=== PATIENT | female | born 1960 | race Caucasian/White ===

== ENCOUNTER → 2016-09-29 | Outpatient (CLI) | payer OTHER ==
--- NOTE | 2016-09-30 19:06 | RADRPT ---
PROCEDURE: Left knee radiographs. CLINICAL INDICATION: Left knee pain. TECHNIQUE: Four views. Weight bearing. Frontal, lateral, oblique, and patellar view. COMPARISON: No prior studies are available for comparison. FINDINGS: There is no fracture or dislocation. The soft tissues are normal. There are degenerative changes with osteophytes arising from all 3 joint compartment margins. There is lateral patellofemoral joint compartment narrowing and deformity. There is no lytic or blastic lesion. There is no radiopaque foreign body. IMPRESSION: 1. Moderate to severe degenerative changes of the left knee. 2. No acute abnormality. RPTAT: QQ .Vipul Sawyer MD, MD Date Time Electronically viewed and signed by .Vipul Sawyer MD, MD on 09/30/2016 19:05 .R/
== END | disposition home or self-care (01) ==
LOC: HKI 15:30
PROVIDERS: ATTEND Orthopaedic Surgery
DX: M25.562 Pain in left knee (principal)

== ENCOUNTER → 2016-10-25 | Outpatient (CLI) | payer OTHER ==
--- NOTE | 2016-10-25 15:30 | RADRPT ---
PROCEDURE: Limited x-ray of both lower extremities. CLINICAL INDICATION: Bilateral leg pain. TECHNIQUE: Single frontal view of both lower extremities was obtained from the hips to the calves. COMPARISON: None. FINDINGS: There are degenerative changes of both hips and both knees with osteophytes and joint space narrowin g. IMPRESSION: 1. Degenerative changes of both hips and both knees. RPTAT: QQ .Vipul Sawyer MD, MD Date Time Electronically viewed and signed by .Vipul Sawyer MD, on 10/25/2016 15:30 .R/
== END | disposition home or self-care (01) ==
LOC: HKI 10:23
PROVIDERS: ATTEND Orthopaedic Surgery
DX: M25.562 Pain in left knee (principal); M17.12 Unilateral primary osteoarthritis, left knee
CPT/HCPCS: 77073; G0463

== ENCOUNTER 2016-11-02 09:05 | Inpatient (IN) | payer OTHER ==
[2016-10-25 12:36] VITALS: BMI 33.5
[~2016-11-02] VITALS: Ht 172.7 cm; Wt 100.0 kg
[2016-11-02] VITALS (32 sets, daily range): BP systolic 110–140; BP diastolic 59–86; PULSE 64–81; RESP 11–19; Ht 172.7 cm; Wt 100.0 kg
[~2016-11-02 09:05] MED LIST: BUPIVACAINE 0.5% (SDV) 30 ML, EPINEPHrine 0.3 MG, KETOROLAC 30 MG, CLONIDINE 100 MCG, S... IRR SCH; BUPIVACAINE LIPOSOME/PF 266 MG/20 ML VIAL INFIL SCH; CEFAZOLIN 2GM/50 ML (PMX) 50 ML X1 BEFORE INCISION IVPB SCH; CELECOXIB 400 MG PO X1 DOSE PO SCH; EXPAREL NOTE (BUPIVICAINE LIPOSOMAL) XX SCH; LACTATED RINGER'S 1,000 ML IV SCH; ONDANSETRON 4 MG IV X 1 DOSE IV SCH; PREGABALIN 300 MG PO X1 PO SCH; TRANEXAMIC ACID 980 MG in SOD CHLORIDE 0.9% 100 ML IVPB SCH; TRANEXAMIC ACID 980 MG in SOD CHLORIDE 0.9% 90.2 ML IV SCH; oxyCODONE (CR) 10 MG TAB [oxyCONTIN] X1 DOSE PO SCH; traMADOL 50 MG TAB X 1 DOSE PO SCH
[2016-11-02] MEDS ORDERED: OMEP20CA16 PO (12:22)
[2016-11-02] MEDS ORDERED: THYR30TA PO (12:22)
--- NOTE | 2016-11-02 14:54 | HPN ---
Date/Time of Note Date/Time of Note DATE: 11/02/16 TIME: 14:53 Interval H&P Admission Note Pt. seen H&P reviewed: No system changes No changes from H&P on 10/23/16 by LEEUTERIO Monge MD Nov 02, 2016 14:54
[2016-11-02] MEDS ORDERED: PROPOFOL 100 ML ONE (15:33)
[2016-11-02] MEDS ORDERED: LIDOCAINE 2% (SDV) 5 ML INJ ONE (15:33)
[2016-11-02] MEDS ORDERED: BACITRACIN 50000 UNITS INJ ONE (15:34)
[2016-11-02] MEDS ORDERED: MIDAZOLAM 1 MG/ML 2 ML INJ ONE (15:34)
[2016-11-02] MEDS ORDERED: FENTAnyl 50 MCG/ML VIAL ONE (15:34)
[2016-11-02] MEDS ORDERED: POLYMYXIN B 500000 UNIT INJ ONE (15:35)
[2016-11-02] MEDS ORDERED: VANCOMYCIN 1 GM INJ ONE ×2 (15:35→16:37)
[2016-11-02] MEDS ORDERED: CEFAZOLIN 1 GM INJ ONE (15:53)
[2016-11-02] MEDS ORDERED: DEXAMETHASONE 4 MG/ML 1 ML INJ ONE (16:25)
[2016-11-02] MEDS ORDERED: METOCLOPRAMIDE 10 MG INJ ONE (16:25)
[2016-11-02] MEDS ORDERED: FAMOTIDINE 20 MG INJ ONE (16:25)
[2016-11-02] MEDS ORDERED: ONDANSETRON 4 MG INJ ONE (16:25)
[2016-11-02] MEDS ORDERED: EPHEDrine SULFATE 50 MG/5 ML SYG ONE (16:30)
[2016-11-02] MEDS ORDERED: DIPHENHYDRAMINE 50 MG INJ IV PRN (17:30)
[2016-11-02] MEDS ORDERED: PROCHLORPERAZINE 10 MG INJ IV PRN (17:30)
[2016-11-02] MEDS ORDERED: ONDANSETRON 4 MG INJ IV PRN ×2 (17:30→18:30)
[2016-11-02] MEDS ORDERED: MEPERIDINE 25 MG INJ IV PRN (17:30)
[2016-11-02] MEDS ORDERED: FENTAnyl 50 MCG/ML VIAL IV PRN (17:30)
[2016-11-02] MEDS ORDERED: HYDROmorphONE (0.2 MG/ML) 10ML SYG IV PRN (17:30)
--- NOTE | 2016-11-02 18:22 | OPR ---
Date/Time of Note Date/Time of Note DATE: 11/02/16 TIME: 18:17 Operative Report Procedure Description DATE: 11/02/2016 PREOPERATIVE DIAGNOSIS: Left knee osteoarthritis POSTOPERATIVE DIAGNOSIS: Left knee osteoarthritis OPERATION PERFORMED: Left total knee arthroplasty. SURGEON: Eleuterio Connolly MD PRACTICE MANAGER: Marlo Garcia PA-C COMPONENTS USED: DePuy Attune 5 narrow femoral component, 5 tibial baseplate, 6 mm polyethylene insert, 38 patella button ANESTHESIA: Spinal plus general endotracheal intubation, plus femoral nerve catheter. ANESTHESIOLOGIST: Cara Henao M.D. TOURNIQUET TIME: 66 minutes. ESTIMATED BLOOD LOSS: 50 cc INTRAVENOUS FLUIDS: 2,300 cc crystalloid SPECIMENS: Bone and soft tissue. DRAINS: Hemovac x1. COMPLICATIONS: None. DISPOSITION: The patient tolerated the procedure well and was taken to the recovery room in stable condition. INDICATIONS: The patient is a 55-year-old woman who has had progressively worsening pain in her left knee with radiographic evidence of severe osteoarthritis. She has tried a multitude of nonsurgical means of treatment to address her pain including activity modifications, pain medications, intra- articular injections, and ambulatory assist devices. Despite these measures she has had worsening pain and I feel she will benefit from a total knee arthroplasty. The risks, benefits, and alternatives of the procedure were explained in detail to the patient. I explained the risks of the surgery to include but not be limited to, bleeding and possible need for blood transfusion; infection; pain; stiffness; neurovascular injury with possible numbness, weakness, and/or paralysis anywhere from the knee down to the toes; fracture; instability; dislocation; wear and/or loosening of the prosthesis and possible need for future revision; blood clots; pulmonary embolism; and anesthetic complications such as heart attack, stroke, GI bleed, pneumonia, and/or . Ample time was allowed for the patient to ask questions, all of which were addressed and answered. The patient understood the risks involved and wished to proceed. Informed consent was signed prior to the procedure. PROCEDURE: The patient's left knee was initialed with a marking pen in the preoperative area to identify the correct operative site. The patient was brought to the operating room and transferred [facility] to the operating table where a spinal anesthetic was administered. The patient was then anesthetized and intubated. A Calvo catheter was placed. A timeout was performed to confirm that the left leg was the correct operative site. The patient was given 2 g of Ancef within one hour prior to the procedure. A tourniquet was placed on the operative proximal thigh. The operative knee and lower extremity were prepped and draped in the usual sterile fashion. The operative lower extremity was elevated and exsanguinated with an Esmarch tourniquet. The proximal thigh tourniquet was inflated to 300 mmHg. The knee was flexed. A midline incision was made and carried down through the subcutaneous tissue and fat with sharp dissection. Limited medial and lateral flaps were raised. A median parapatellar approach was performed. Synovial fluid was normal in color and consistency. The patella was everted and the knee flexed. There were severe tricompartmental osteoarthritic changes noted. A medial release was performed at the joint line to the midcoronal plane. The ACL and PCL and remnants of the menisci were excised. The stepped drill was used to open up the femoral canal which was irrigated and sucked dry. The intramedullary guide sayra was passed up the femur, and the distal cutting block was pinned into place for a 5 degree valgus cut, taking 10 mm of bone off distally. The oscillating saw was used to make the cut. The tibia was subluxed anteriorly. The tibial cutoff jig was placed over the center of the talus distally and over the junction of the medial and middle third of the tibial tubercle proximally. The guide was pinned into place and the oscillating saw was used to make the cut. The tibia was sized. The extension gap was checked and accommodated a 6 mm spacer block with the knee in full extension. There was no varus or valgus instability. At this point, the femur was sized with the posterior referencing guide. Two holes were drilled in 3 degrees of external rotation. The two holes were in line with the transepicondylar axis, perpendicular to Attala's line, and in line with the tibial cutoff jig brought up with the knee flexed 90 degrees and tensed with 2 lamina spreaders, suggesting the femoral rotation was correct. The four-in-one cutting block was pinned into place. The anterior and posterior cuts and chamfer cuts were made with the oscillating saw. The flexion gap was checked and accommodated the 6 mm spacer block at 90 degrees. There was no varus or valgus instability, suggesting the flexion and extension gaps were now equal. The central box was cut out on the femur. The tibia was drilled and punched in proper rotation. Trial components were placed into position with a trial insert. The patella was cut down to 15 mm and sized. Three holes were drilled and the trial button placed in position. With all the trials now in place, the knee was taken through range of motion and came to full extension as evidenced by the fact that with the foot on my abdomen and axial loading, there was no tendency for the knee to flex. The knee was able to be flexed to 125 degrees with good patellar tracking with no lateral tilt or subluxation. At this point, I was satisfied with the overall range of motion, stability, and patellar tracking. The trials were removed. The real components were opened. Two bags of cement were mixed, one with and one without premixed antibiotic. The knee was irrigated with antibiotic saline and sucked dry. Once the cement was in a doughy stage, the real components were cemented into place. The knee was held in full extension, and the patellar component was held with a patellar clamp. All excess cement was removed with curettes. As the cement was hardening, the synovial/capsular layer was infiltrated with a mixture of 150 mg of 0.5% Bupivacaine, 8 mg of Duramorph, 300 mcg of epinephrine, 30 mg of Toradol, 100 mcg of clonidine, 750 mg of cefuroxime and 86 mL of normal saline, followed by an injection of 266 mg of liposomal Bupivacaine. A Hemovac drain was placed in the deep portion of the wound and brought out the anterolateral thigh. Once the cement was completely hardened, the trial liner was removed, and the real insert was opened. The tourniquet was let down, and there was good hemostasis. The knee was then irrigated with a mixture of betadine/saline and then antibiotic saline with pulsatile lavage. The real insert was impacted into the tibia and reduced onto to the femur. The arthrotomy was closed with a few interrupted #1 Ethibond in a figure-of- eight fashion, and then closed in a watertight fashion with a running #2 Stratafix suture. Knee flexion was checked against gravity and came to 125 degrees. The subcutaneous layer was irrigated and closed with 2-0 Statafix, and then 3-0 Vicryl and then nadeem on the skin. The wound was covered a silver Mepilex dressing. Upon removing the drapes it was noted that she had diffuse skin adhesive abrasions from where the adhesive aspects of the sterile drapes were applied around the proximal thigh. This was covered with Xeroform dressings and then overwrapped with cast padding and a bias dressing. The drain was secured with 3-0 nylon. The sponge and needle counts were correct at the end of the case. The patient was then awakened, extubated, and taken to the recovery room in stable condition. ELEUTERIO CONNOLLY MD Nov 02, 2016 18:22
--- NOTE | 2016-11-02 18:26 | PN ---
Date/Time of Note Date/Time of Note DATE: 11/02/16 TIME: 18:24 Assessment/Plan Lines/Catheters IV Catheter Type (from Nrsg): Saline Lock Assessment/Plan Assessment/Plan Stable in PACU, s/p left TKA -continue Ancef -pain meds as needed -ASA/SCDs -OOB with PT -check AM labs -monitor drain -d/c dupree in AM XR of the left knee is pending at this time Subjective 24 Hr Interval Summary Stable in PACU. Denies pain. Moving all extremities Exam/Review of Systems Vital Signs Vitals Vital Signs Date Time Temp Pulse Resp B/P Pulse Ox O2 Delivery O2 Flow Rate FiO2 11/02/16 12:22 99.2 73 16 115/71 97 Room Air Exam Free Text/Dictation Hemovac: minimal Dressing dry Incision clean, dry, and intact without redness or drainage Thigh soft Developed adhesive abrasion from the drape in circumferential fashion 5/5 Quadriceps, Tibialis Anterior, EHL, Gastroc, Soleus, Peroneals Normal sensation Palpable DT/PT, CR <2 sec No distal edema SOHA HAJI PA-C Nov 02, 2016 18:26
[2016-11-02] MEDS ORDERED: ASPIRIN (EC) 325 MG TAB PO ONE (18:30)
[2016-11-02] MEDS ORDERED: HYDROCODONE/APAP (7.5/325) TAB PO PRN (18:30)
[2016-11-02] MEDS ORDERED: BISACODYL 10 MG SUPP PR PRN (18:30)
[2016-11-02] MEDS ORDERED: HYDROmorphONE 1 MG/ML SYG IV PRN (18:30)
[2016-11-02] MEDS ORDERED: NACL 0.9% 3 ML SYG IV SCH (18:30)
[2016-11-02] MEDS ORDERED: MAGNESIUM HYDROXIDE 30ML CUP PO PRN (18:30)
[2016-11-02] MEDS ORDERED: NA PHOSPHATE/BIPHOS 133 ML ENEMA PR PRN (18:30)
[2016-11-02] MEDS ORDERED: DIPHENHYDRAMINE 25 MG CAP PO PRN (18:30)
[2016-11-02 18:48] LABS: HEMATOCRIT 38.2 % (37.0-47.0); HEMOGLOBIN 12.5 g/dl (12.0-16.0)
[2016-11-02 19:16] LABS: CALCIUM 8.5 mg/dl (8.4-10.2); CREATININE 0.89 mg/dl (0.44-1.00); POTASSIUM 4.3 mmol/L (3.5-5.1)
[2016-11-02] MEDS: CEFAZOLIN 2 GM/50 ML (PMX) 50 ML IVPB SCH (19:40)
[2016-11-02 19:43] LABS: ADD UMIC YES; UR ASCORBIC ACID NEGATIVE (NEGATIVE); UR BILIRUBIN (Dip) NEGATIVE (NEGATIVE); UR BLOOD (Dip) NEGATIVE (NEGATIVE); UR CLARITY SLIGHTLY CLOUDY (CLEAR); UR COLOR YELLOW (YELLOW); UR GLUCOSE (Dip) NEGATIVE (NEGATIVE); UR KETONES (Dip) NEGATIVE (NEGATIVE); UR LEUKOCYTE ESTERASE (Dip) NEGATIVE Leu/ul (NEGATIVE); UR NITRITE (Dip) NEGATIVE (NEGATIVE); UR RBC 1 /HPF (0-5); UR SPECIFIC GRAVITY (Dip) 1.021 (1.003-1.030); UR TOTAL PROTEIN (Dip) 1+ mg/dl (NEGATIVE); UR UROBILINOGEN (Dip) NEGATIVE (NEGATIVE)
--- NOTE | 2016-11-02 20:09 | RADRPT ---
PROCEDURE: XR Knee. CLINICAL INDICATION: Postoperative x-ray. TECHNIQUE: 2 views of the left knee. COMPARISON: 09/29/2016 FINDINGS: The patient is status post total knee arthroplasty with patellar resurfacing. Osseous alignment is anatomic. There is a probable joint effusion. Skin nadeem and a surgical drain project over the k nee. IMPRESSION: 1. Status post total knee arthroplasty. RPTAT: HTAR .Grant Arreola MD, MD Date Time Electronically viewed and signed by .Grant Arreola MD, on 11/02/2016 20:09 .R/
[2016-11-02] MEDS: LACTATED RINGER'S 1,000 ML IV SCH (21:09)
[2016-11-02] MEDS: PREGABALIN 50 MG CAP PO SCH (21:09)
[2016-11-02] MEDS: DOCUSATE SODIUM 100 MG CAP PO SCH (21:10)
[2016-11-02] MEDS ORDERED: TRANEXAMIC ACID 1,000 MG in SOD CHLORIDE 0.9% 100 ML IVPB ONE (21:30)
[2016-11-02] MEDS: traMADol 50 MG TAB PO SCH (23:27)
[2016-11-03] MEDS ORDERED: TRANEXAMIC ACID 1,000 MG in SOD CHLORIDE 0.9% 100 ML IVPB ONE (00:30)
[2016-11-03] MEDS: LACTATED RINGER'S 1,000 ML IV SCH ×4 (02:18→23:40)
[2016-11-03 04:36] VITALS: BP 121/76; PULSE 65; RESP 16
[2016-11-03] MEDS: CEFAZOLIN 2 GM/50 ML (PMX) 50 ML IVPB SCH ×2 (04:44→12:15)
[2016-11-03 05:42] LABS: HEMATOCRIT 36.7 % (37.0-47.0); HEMOGLOBIN 11.9 g/dl (12.0-16.0)
[2016-11-03] MEDS: traMADol 50 MG TAB PO SCH ×4 (05:43→23:05)
[2016-11-03] MEDS: PANTOPRAZOLE (EC) 40 MG TAB PO SCH ×2 (05:43→17:44)
[2016-11-03 07:07] LABS: CALCIUM 8.6 mg/dl (8.4-10.2); CREATININE 0.85 mg/dl (0.44-1.00); POTASSIUM 5.1 mmol/L (3.5-5.1)
--- NOTE | 2016-11-03 07:34 | PDOCDIS ---
Discharge Instructions DIAGNOSIS Discharge Diagnosis s/p left TKA CONDITION Patient Condition: Good HOME CARE INSTRUCTIONS: Diet Instructions: Regular ACTIVITY: Activity Restrictions: Slowly Increase Activity Rest between Activity Avoid heavy lifting Do not operate Machinery Do not operate Power Tool Avoid Heavy Housework Keep Limb Elevated Weight Bearing Bathing Restrictions: Shower FOLLOW UP/APPOINTMENTS Follow-up Plan follow up in the office on 11/13/16 OTHER ORDERS: Other Orders: S/P TKA Physical Therapy: Three times per week at home x 2 weeks Daily in Rehab/SNF WB STATUS: WBAT 1. Strengthening exercises for both upper and un-operated lower extremities. 2. Gait training with front wheeled walker 3. Active range of motion exercises to operative knee. 4. When not working on knee range of motion exercises, distal towel roll under operative ankle/distal calf to promote full extension. 5. DO NOT PUT ANYTHING BEHIND OPERATIVE KNEE!!! 6. Quadriceps and hamstring strengthening. 7. May switch to cane in contra lateral hand 6 weeks after surgery. 8. Physical Therapy can open case if nursing is not available. 9. Use Ice Machine as instructed from date of surgery while at rest 3X/day. 10. Patient requires mobile SCDs to reduce risk of developing DVT following TKA. Patient will use the mobile SCDs for 30 days postoperatively. Bathing assistance by home health aide twice weekly if Medicare patient. Occupational Therapy: Evaluation for assistive devices and ADL training. Wound Care: Keep incision dry & covered with Tegaderm until first visit with Dr. Evans Anticoagulation Orders: Enteric Coated Aspirin 325 mg po bid x 6 weeks from date of surgery Follow-up:Call for an appointment with Dr. Evans in 1 week after discharged from hospital at DME Orders: FWBobo, 3-in-1 Commode, Polar ice machine, Mobile SCDs SOHA HAJI PA-C Nov 03, 2016 07:34
[2016-11-03] MEDS ORDERED: HYDR-3605 PO (07:35)
[2016-11-03] MEDS ORDERED: PREG50CA PO (07:35)
[2016-11-03] MEDS ORDERED: TRAM50TA2 PO (07:35)
[2016-11-03] MEDS ORDERED: ASPI325T32 PO (07:35)
[2016-11-03 08:30] VITALS: BP 101/57; RESP 19
--- NOTE | 2016-11-03 09:02 | PN ---
Date/Time of Note Date/Time of Note DATE: 11/03/16 TIME: 09:00 Assessment/Plan Lines/Catheters IV Catheter Type (from Nrsg): Peripheral IV Assessment/Plan Assessment/Plan POD #1, s/p right TKA -d/c Ancef -pain meds as needed -ASA/SCDs -continue Xeroform around adhesive abrasions to thight -drain removed -OOB with PT -check AM labs -d/c planning. Will plan to go home upon discharge Subjective 24 Hr Interval Summary No acute overnight events. Denies significant knee pain. Did not start PT yesterday. Denies eye pain but does have some adhesive abrasions due to paper tape. VSS, afebrile. Will plan to go home upon discharge. Exam/Review of Systems Vital Signs Vitals Vital Signs Date Time Temp Pulse Resp B/P Pulse Ox O2 Delivery O2 Flow Rate FiO2 11/03/16 08:30 98.5 65 19 101/57 98 11/03/16 04:36 Nasal Cannula 3.0 Intake and Output 11/02/16 11/02/16 11/03/16 15:00 23:00 07:00 Intake Total 2300 ml 1850 ml Output Total 350 ml 1600 ml Balance 1950 ml 250 ml Exam Free Text/Dictation Hemovac: 200cc Dressing dry Incision clean, dry, and intact without redness or drainage Adhesive abrasion to right upper thigh due to tape from sterile draping Thigh soft 5/5 Quadriceps, Tibialis Anterior, EHL, Gastroc, Soleus, Peroneals Normal sensation Palpable DT/PT, CR <2 sec No distal edema Results Result Diagram: 11/03/16 0448 11/03/16 0448 SOHA HAJI PA-C Nov 03, 2016 09:02
[2016-11-03 09:07] LABS: ADD UMIC NO; UR ASCORBIC ACID 40 mg/dL (NEGATIVE); UR BILIRUBIN (Dip) NEGATIVE (NEGATIVE); UR BLOOD (Dip) NEGATIVE (NEGATIVE); UR CLARITY CLEAR (CLEAR); UR COLOR YELLOW (YELLOW); UR GLUCOSE (Dip) NEGATIVE (NEGATIVE); UR KETONES (Dip) NEGATIVE (NEGATIVE); UR LEUKOCYTE ESTERASE (Dip) NEGATIVE Leu/ul (NEGATIVE); UR NITRITE (Dip) NEGATIVE (NEGATIVE); UR SPECIFIC GRAVITY (Dip) 1.023 (1.003-1.030); UR TOTAL PROTEIN (Dip) NEGATIVE (NEGATIVE); UR UROBILINOGEN (Dip) NEGATIVE (NEGATIVE)
[2016-11-03] MEDS: THYROID 30 MG TAB PO SCH (09:14)
[2016-11-03] MEDS: DOCUSATE SODIUM 100 MG CAP PO SCH ×2 (09:14→20:24)
[2016-11-03] MEDS: PREGABALIN 50 MG CAP PO SCH ×2 (09:14→20:25)
[2016-11-03] MEDS: ASPIRIN (EC) 325 MG TAB PO SCH ×2 (09:14→20:25)
--- NOTE | 2016-11-03 09:18 | CONS ---
Date/Time of Note Date/Time of Note DATE: 11/03/16 TIME: 09:08 Assessment/Plan Assessment/Plan Chief Complaint/Hosp Course Impression: 1. 1 day postop a left total knee replacement, she is doing well postoperatively. She does have some ecchymoses over her eyelids where she had tape applied during surgery. She also has some ecchymoses over her left knee surgical site where she had tape and drapes applied. She has had a problem with ecchymoses in the past and it this is thought to be due to her underlying amyloidosis. 2. Presumed diagnosis of amyloidosis 3. Peripheral neuropathy 4. Hypothyroidism on replacement 5. Gastroesophageal reflux disease 6. Mitral valve prolapse Plan: 1. Resume routine medications 2. Postop total knee replacement protocol 3. Labs were done this morning and are acceptable. 4. I will follow patient along with you. Problems: Consultation Date/Type/Reason Admit Date/Time Nov 02, 2016 at 10:56 Type of Consultation: medicine Referring Provider: ELEUTERIO CONNOLLY MD Hx of Present Illness This patient is being seen now one day after undergoing a left total knee arthroplasty by Dr. Connolly. Patient is awake and alert. She seems comfortable. Her pain is under control. She does have some skin reaction over her eyelids and her left left knee surgical site where she had tape. According to the patient whenever there is pressure applied to her skin she develops ecchymoses. She has had a complete medical workup and there is suspicion that she has underlying amyloidosis. Constitutional: no complaints Respiratory: no complaints Cardiovascular: no complaints Gastrointestinal: no complaints Genitourinary: no complaints Musculoskeletal: no complaints Skin: bruising Neurologic: other Psychological: no complaints Past Medical History 1. Presumed diagnosis of amyloidosis being seen at [facility] by Dr. Kalen Prasad . 2. Peripheral neuropathy 3. Gastroesophageal reflux disease 4. Hypothyroidism on replacement. 5. Mitral valve prolapse. Past Surgical History Past surgical history is remarkable for : 1. Left retinal detachment repair October 2014 2. Right plantar fasciotomy 3. Mastopexy 4. Left knee arthroscopy 5. D&C 6. Left lateral knee release Family History Significant Family History: hypertension Social History Alcohol Use: rarely Smoking Status: Never smoker Drug Use: none Exam/Review of Systems Vital Signs Vitals Vital Signs Date Time Temp Pulse Resp B/P Pulse Ox O2 Delivery O2 Flow Rate FiO2 7/28/17 08:30 98.5 65 19 101/57 98 11/03/16 04:36 Nasal Cannula 3.0 Intake and Output 11/02/16 11/02/16 11/03/16 15:00 23:00 07:00 Intake Total 2300 ml 1850 ml Output Total 350 ml 1600 ml Balance 1950 ml 250 ml Exam Constitutional: alert, oriented, well developed ENMT: nl external ears & nose, nl lips & teeth, nl nasal mucosa & septum Respiratory: clear to auscultation, normal air movement Cardiovascular: regular rate and rhythm Gastrointestinal: soft Musculoskeletal: nl extremities to inspection Skin: ecchymosis Results Result Diagram: 11/03/168 11/03/16447 Results 24 hrs Laboratory Tests Test 11/02/16 18:20 11/02/16 18:34 11/03/16 04:48 11/03/16 05:45 Urine Color YELLOW YELLOW Urine Clarity SLIGHTLY CLOUDY A CLEAR Urine pH 5.0 5.0 Urine Specific [place] 1.021 1.023 Urine Ketones NEGATIVE NEGATIVE Urine Nitrite NEGATIVE NEGATIVE Urine Bilirubin NEGATIVE NEGATIVE Urine Urobilinogen NEGATIVE NEGATIVE Urine Leukocyte Esterase NEGATIVE NEGATIVE Urine Microscopic RBC 1 Urine Microscopic WBC 2 Urine Hemoglobin NEGATIVE NEGATIVE Urine Glucose NEGATIVE NEGATIVE Urine Total Protein 1+ H NEGATIVE Hemoglobin 12.5 11.9 L Hematocrit 38.2 36.7 L Sodium Level 143 143 Potassium Level 4.3 5.1 Chloride Level 107 106 Carbon Dioxide Level 25 26 Anion Gap 15 16 Blood Urea Nitrogen 9 11 Creatinine 0.89 0.85 Glucose Level 102 116 Calcium Level 8.5 8.6 Medications Medications Current Medications Miscellaneous Information 1 ea NOTE XX ; Start 11/02/16 at 07:00; Stop 11/05/16 at 06:59 Thyroid 30 mg 30 mg DAILY PO ; Start 11/03/16 at 09:00 Lactated Ringer's (Lr) 1,000 ml @ 125 mls/hr Q8H IV Last administered on 04:49; Admin Dose 125 MLS/HR; Start 11/02/16 at 18:18 Tramadol HCl (Ultram) 50 mg Q6 PO Last administered on 11/03/16 05:43; Admin Dose 50 MG; Start 11/03/16 at 00:00; Stop 11/05/16 at 00:00 Hydromorphone HCl 1 mg 1 mg Q3H PRN IV PAIN LEVEL 8-10; Start 11/02/16 at 18:30 Cefazolin Sodium/ Dextrose (Ancef 2 Gm/50 ml (Pmx)) 50 ml @ 100 mls/hr Q8H IVPB Last administered on 11/03/16 04:44; Admin Dose 100 MLS/HR; Start at 20:30; Stop 11/03/16 at 12:59 Ondansetron HCl (Zofran Inj) 4 mg Q6H PRN IV NAUSEA AND/OR VOMITING; Start at 18:30 Bisacodyl (Dulcolax Supp) 10 mg Q12H PRN [place] CONSTIPATION; Start 11/02/16 at 18: 30 Magnesium Hydroxide (Milk Of Mag) 30 ml BID PRN PO CONSTIPATION; Start at 18:30 Sodium Biphosphate/ Sodium Phosphate (Fleet Enema) 133 ml DAILY PRN [place] CONSTIPATION; Start 11/02/16 at 18:30 Docusate Sodium (Colace) 100 mg BID PO Last administered on 11/02/16 21:10; Admin Dose 100 MG; Start 11/02/16 at 21:00 Diphenhydramine HCl (Benadryl) 25 mg Q6H PRN PO PRURITUS; Start 11/02/16 at 18: 30 Acetaminophen/ Hydrocodone Bitart ([place] (7.5-325)) 1 tab Q4H PRN PO PAIN LEVEL 1-3; Start 11/02/16 at 18:30 Acetaminophen/ Hydrocodone Bitart ([place] (7.5-325)) 2 tab Q4H PRN PO PAIN LEVEL 4-7; Start 11/02/16 at 18:30 Aspirin (Ecotrin) 325 mg BID PO ; Start 11/03/16 at 09:00 Pantoprazole (Protonix Tab) 40 mg BID@06,18 PO Last administered on 11/03/16 05:43; Admin Dose 40 MG; Start 11/03/16 at 06:00 Pregabalin (Lyrica) 50 mg BID PO Last administered on 11/02/16 21:09; Admin Dose 50 MG; Start 11/02/16 at 21:00 TAMMY SANDERS MD Nov 03, 2016 09:18
[2016-11-03 16:20] VITALS: BP 97/54; RESP 19
[2016-11-03 19:54] VITALS: BP 118/67; PULSE 68; RESP 18
[2016-11-04] MEDS: PANTOPRAZOLE (EC) 40 MG TAB PO SCH ×2 (04:20→17:44)
[2016-11-04] MEDS: traMADol 50 MG TAB PO SCH ×4 (04:21→23:03)
[2016-11-04 05:14] LABS: HEMOGLOBIN 10.5 g/dl (12.0-16.0)
[2016-11-04 05:47] LABS: CALCIUM 8.4 mg/dl (8.4-10.2); CREATININE 0.91 mg/dl (0.44-1.00); POTASSIUM 3.7 mmol/L (3.5-5.1)
[2016-11-04] MEDS: LACTATED RINGER'S 1,000 ML IV SCH ×3 (07:42→23:04)
[2016-11-04 08:17] VITALS: BP 104/59; RESP 22
[2016-11-04] MEDS: THYROID 30 MG TAB PO SCH (09:04)
[2016-11-04] MEDS: ASPIRIN (EC) 325 MG TAB PO SCH ×2 (09:04→20:43)
[2016-11-04] MEDS: PREGABALIN 50 MG CAP PO SCH ×2 (09:04→20:43)
[2016-11-04] MEDS: DOCUSATE SODIUM 100 MG CAP PO SCH ×2 (09:05→20:43)
[2016-11-04] MEDS: HYDROCODONE/APAP (7.5/325) TAB PO PRN ×3 (09:08→20:43)
--- NOTE | 2016-11-04 09:28 | PN ---
Date/Time of Note Date/Time of Note DATE: 11/04/16 TIME: 09:27 Assessment/Plan Lines/Catheters IV Catheter Type (from Nrsg): Saline Lock Assessment/Plan Assessment/Plan POD # 2. Stable. -Pain meds -OOB with PT -Xeroform dressing to abrasions -ASA/SCDs -D/C to home tomorrow or Sunday Subjective 24 Hr Interval Summary Having some increased pain. [place] helping. Exam/Review of Systems Vital Signs Vitals Vital Signs Date Time Temp Pulse Resp B/P Pulse Ox O2 Delivery O2 Flow Rate FiO2 11/04/16 08:17 97.9 71 22 104/59 95 11/03/16 19:54 Room Air 11/03/16 04:36 3.0 Intake and Output 11/03/16 11/03/16 11/04/16 15:00 23:00 07:00 Intake Total 50 ml 2090 ml 1400 ml Output Total 300 ml 1200 ml Balance 50 ml 1790 ml 200 ml Exam Free Text/Dictation Dressing dry Incision clean, dry, and intact without redness or drainage Extensive abrasions proximal thigh from adhesive in drapes. No surrounding redness. 5/5 Tibialis Anterior, EHL, Gastroc Soleus, Peroneals Normal sensation Palpable DP/PT, CR < 2 Sec No distal edema Results Result Diagram: 11/04/16 0456 11/04/16 0456 ELEUTERIO CONNOLLY MD Nov 04, 2016 09:28
--- NOTE | 2016-11-04 09:29 | CONS ---
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 did stairs yesterday! Exam/Review of Systems Vital Signs Vitals Vital Signs Date Time Temp Pulse Resp B/P Pulse Ox O2 Delivery O2 Flow Rate FiO2 11/04/16 08:17 97.9 71 22 104/59 95 11/03/16 19:54 Room Air 11/03/16 04:36 3.0 Intake and Output 11/03/16 11/03/16 11/04/16 15:00 23:00 07:00 Intake Total 50 ml 2090 ml 1400 ml Output Total 300 ml 1200 ml Balance 50 ml 1790 ml 200 ml Exam Constitutional: alert, oriented Eyes: nl conjunctiva (periorb ecchymosis sl less) Neck: supple Respiratory: clear to auscultation Cardiovascular: regular rate and rhythm Extremities: normal pulses Results Result Diagram: 11/04/16 0456 11/04/16 0456 Results 24 hrs Laboratory Tests Test 11/04/16 04:56 Hemoglobin 10.5 L Hematocrit 33.0 L Sodium Level 144 Potassium Level 3.7 Chloride Level 106 Carbon Dioxide Level 28 Anion Gap 14 Blood Urea Nitrogen 13 Creatinine 0.91 Glucose Level 100 Calcium Level 8.4 Medications Medications Current Medications Miscellaneous Information 1 ea NOTE XX ; Start 11/02/16 at 07:00; Stop 11/05/16 at 06:59 Thyroid 30 mg 30 mg DAILY PO Last administered on 11/04/16 09:04; Admin Dose 30 MG; Start 11/03/16 at 09:00 Lactated Ringer's (Lr) 1,000 ml @ 125 mls/hr Q8H IV Last administered on 04:49; Admin Dose 125 MLS/HR; Start 11/02/16 at 18:18 Tramadol HCl (Ultram) 50 mg Q6 PO Last administered on 11/04/16 04:21; Admin Dose 50 MG; Start 11/03/16 at 00:00; Stop 11/05/16 at 00:00 Hydromorphone HCl (Dilaudid) 1 mg Q3H PRN IV PAIN LEVEL 8-10; Start 11/02/16 at 18:30 Ondansetron HCl (Zofran Inj) 4 mg Q6H PRN IV NAUSEA AND/OR VOMITING; Start at 18:30 Bisacodyl (Dulcolax Supp) 10 mg Q12H PRN [place] CONSTIPATION; Start 11/02/16 at 18: 30 Magnesium Hydroxide (Milk Of Mag) 30 ml BID PRN PO CONSTIPATION; Start at 18:30 Sodium Biphosphate/ Sodium Phosphate (Fleet Enema) 133 ml DAILY PRN IN CONSTIPATION; Start 11/02/16 at 18:30 Docusate Sodium (Colace) 100 mg BID PO Last administered on 11/04/16 09:05; Admin Dose 100 MG; Start 11/02/16 at 21:00 Diphenhydramine HCl (Benadryl) 25 mg Q6H PRN PO PRURITUS; Start 11/02/16 at 18: 30 Acetaminophen/ Hydrocodone Bitart ([place] (7.5-325)) 1 tab Q4H PRN PO PAIN LEVEL 1-3; Start 11/02/16 at 18:30 Acetaminophen/ Hydrocodone Bitart ([place] (7.5-325)) 2 tab Q4H PRN PO PAIN LEVEL 4-7 Last administered on 11/04/16 09:08; Admin Dose 2 TAB; Start at 18:30 Aspirin (Ecotrin) 325 mg BID PO Last administered on 11/04/16 09:04; Admin Dose 325 MG; Start 11/03/16 at 09:00 Pantoprazole (Protonix Tab) 40 mg BID@18 PO Last administered on 11/04/16 04:20; Admin Dose 40 MG; Start 11/03/16 at 06:00 Pregabalin (Lyrica) 50 mg BID PO Last administered on 11/04/16 09:04; Admin Dose 50 MG; Start 11/02/16 at 21:00 HARVEY STEPHENSON MD Nov 04, 2016 09:27
[2016-11-04 19:35] VITALS: BP 124/70; RESP 18
[2016-11-04 19:45] VITALS: BP 124/68; PULSE 70; RESP 18
[2016-11-05] MEDS: HYDROCODONE/APAP (7.5/325) TAB PO PRN ×4 (01:12→20:17)
[2016-11-05 04:56] LABS: HEMATOCRIT 32.8 % (37.0-47.0); HEMOGLOBIN 10.5 g/dl (12.0-16.0)
[2016-11-05 05:31] LABS: CALCIUM 8.2 mg/dl (8.4-10.2); CREATININE 0.83 mg/dl (0.44-1.00); POTASSIUM 3.8 mmol/L (3.5-5.1)
[2016-11-05] MEDS: PANTOPRAZOLE (EC) 40 MG TAB PO SCH ×2 (06:00→17:36)
--- NOTE | 2016-11-05 08:00 | PN ---
Date/Time of Note Date/Time of Note DATE: 11/05/16 TIME: 07:57 Assessment/Plan VTE Prophylaxis VTE Prophylaxis Intervention: ambulation, SCD's, other (Aspirin 325 mg twice daily) Lines/Catheters IV Catheter Type (from Nrsg): Saline Lock Calvo in Place (from Nrsg): No Assessment/Plan Assessment/Plan -Pain Meds as needed -Dress change performed today. Xeroform occlusive dressing applied to the medial thigh skin abrasions of the proximal left lower extremity. -OOB with PT -ASA/SCDs for DVT Prophylaxis -Continue monitoring with Internal Medicine -Patient Stable. If patient continues to progress well expected discharge tomorrow. Subjective 24 Hr Interval Summary 55-year-old female postop day 3 status post left total knee arthroplasty. Patient states the pain is improved. No complaints of the left knee overnight. Patient is up and out of bed and walking throughout hallways. In regards to skin abrasions to the proximal left lower extremity she continues with burning sensation that has improved since yesterday. Has noticed some scabbing and crusting over the wound. Continues to progress well. Constitutional: no complaints Pain Control: well controlled Exam/Review of Systems Vital Signs Vitals Vital Signs Date Time Temp Pulse Resp B/P Pulse Ox O2 Delivery O2 Flow Rate FiO2 11/04/16 19:45 98.2 70 18 124/68 99 Room Air 11/03/16 04:36 3.0 Intake and Output 11/04/16 11/04/16 11/05/16 15:00 23:00 07:00 Intake Total 1300 ml 1400 ml Output Total 950 ml 1200 ml Balance 350 ml 200 ml Exam Free Text/Dictation -Incision: Clean, Dry and Intact without any redness or drainage -5/5 Tibialis Anterior, EHL Gastrocnemius/Soleus and Peroneals -Normal Sensation -Superficial skin abrasions beginning to show some scabbing. Mild bleeding to the more distal skin abrasion of the medial thigh. -Palpable DP/PT, Capillary Refill <2 secs -No Distal Edema -Negative Kala Sign/No calf pain -Toes Freely Movable Constitutional: alert, oriented, well developed Results Result Diagram: 11/05/16 0431 11/05/16 0431 PATRICIO BEDOYA PA-C Nov 05, 2016 08:00
[2016-11-05] MEDS: ASPIRIN (EC) 325 MG TAB PO SCH ×2 (08:02→20:19)
[2016-11-05] MEDS: DOCUSATE SODIUM 100 MG CAP PO SCH ×2 (08:02→20:19)
[2016-11-05] MEDS: THYROID 30 MG TAB PO SCH (08:02)
[2016-11-05] MEDS: PREGABALIN 50 MG CAP PO SCH ×2 (08:02→20:19)
[2016-11-05 08:10] VITALS: BP 104/58; RESP 20
--- NOTE | 2016-11-05 09:35 | CONS ---
Date/Time of Note Date/Time of Note DATE: 11/05/16 TIME: 09:34 Assessment/Plan Assessment/Plan Problems: (1) Amyloid disease Comment: stable... bruising improved (2) S/P knee replacement Comment: now POD #3 s/p L TKR... prob d/c in am Consultation Date/Type/Reason Admit Date/Time Nov 02, 2016 at 10:56 Type of Consultation: medicine Referring Provider: ELEUTERIO CONNOLLY MD 24 HR Interval Summary Free Text/Dictation great... working w PT Exam/Review of Systems Vital Signs Vitals Vital Signs Date Time Temp Pulse Resp B/P Pulse Ox O2 Delivery O2 Flow Rate FiO2 11/05/16 08:10 98.7 76 20 104/58 94 11/04/16 19:45 Room Air 11/03/16 04:36 3.0 Intake and Output 11/04/16 11/04/16 11/05/16 15:00 23:00 07:00 Intake Total 1300 ml 1400 ml Output Total 950 ml 1200 ml Balance 350 ml 200 ml Exam Constitutional: alert, oriented Eyes: nl conjunctiva Neck: supple Respiratory: clear to auscultation Cardiovascular: regular rate and rhythm Gastrointestinal: soft Extremities: normal pulses (no calf pain) Results Result Diagram: 11/05/16 0431 11/05/16 0431 Results 24 hrs Laboratory Tests Test 11/05/16 04:31 Hemoglobin 10.5 L Hematocrit 32.8 L Sodium Level 141 Potassium Level 3.8 Chloride Level 103 Carbon Dioxide Level 29 Anion Gap 13 Blood Urea Nitrogen 12 Creatinine 0.83 Glucose Level 102 Calcium Level 8.2 L Medications Medications Current Medications Thyroid 30 mg 30 mg DAILY PO Last administered on 11/05/16 08:02; Admin Dose 30 MG; Start 11/03/16 at 09:00 Lactated Ringer's (Lr) 1,000 ml @ 125 mls/hr Q8H IV Last administered on 04:49; Admin Dose 125 MLS/HR; Start 11/02/16 at 18:18 Hydromorphone HCl (Dilaudid) 1 mg Q3H PRN IV PAIN LEVEL 8-10; Start 11/02/16 at 18:30 Ondansetron HCl (Zofran Inj) 4 mg Q6H PRN IV NAUSEA AND/OR VOMITING; Start at 18:30 Bisacodyl (Dulcolax Supp) 10 mg Q12H PRN [place] CONSTIPATION; Start 11/02/16 at 18: 30 Magnesium Hydroxide (Milk Of Mag) 30 ml BID PRN PO CONSTIPATION; Start at 18:30 Sodium Biphosphate/ Sodium Phosphate (Fleet Enema) 133 ml DAILY PRN [place] CONSTIPATION; Start 11/02/16 at 18:30 Docusate Sodium (Colace) 100 mg BID PO Last administered on 11/05/16 08:02; Admin Dose 100 MG; Start 11/02/16 at 21:00 Diphenhydramine HCl (Benadryl) 25 mg Q6H PRN PO PRURITUS; Start 11/02/16 at 18: 30 Acetaminophen/ Hydrocodone Bitart ([place] (7.5-325)) 1 tab Q4H PRN PO PAIN LEVEL 1-3; Start 11/02/16 at 18:30 Acetaminophen/ Hydrocodone Bitart ([place] (7.5-325)) 2 tab Q4H PRN PO PAIN LEVEL 4-7 Last administered on 11/05/16 08:02; Admin Dose 2 TAB; Start at 18:30 Aspirin (Ecotrin) 325 mg BID PO Last administered on 11/05/16 08:02; Admin Dose 325 MG; Start 11/03/16 at 09:00 Pantoprazole (Protonix Tab) 40 mg BID@06,18 PO Last administered on 11/04/16 17:44; Admin Dose 40 MG; Start 11/03/16 at 06:00 Pregabalin (Lyrica) 50 mg BID PO Last administered on 11/05/16 08:02; Admin Dose 50 MG; Start 11/02/16 at 21:00 HARVEY STEPHENSON MD Nov 05, 2016 09:35
[2016-11-05] MEDS: LACTATED RINGER'S 1,000 ML IV SCH ×2 (10:18→17:36)
[2016-11-05 19:47] VITALS: BP 119/59; RESP 18
[2016-11-06] MEDS: LACTATED RINGER'S 1,000 ML IV SCH ×2 (02:18→10:18)
[2016-11-06] MEDS: HYDROCODONE/APAP (7.5/325) TAB PO PRN ×2 (03:05→08:29)
[2016-11-06] MEDS: PANTOPRAZOLE (EC) 40 MG TAB PO SCH (05:26)
[2016-11-06 05:46] LABS: HEMATOCRIT 33.8 % (37.0-47.0); HEMOGLOBIN 10.8 g/dl (12.0-16.0)
[2016-11-06 06:17] LABS: CALCIUM 8.5 mg/dl (8.4-10.2); CREATININE 0.83 mg/dl (0.44-1.00); POTASSIUM 3.9 mmol/L (3.5-5.1)
[2016-11-06] MEDS: ASPIRIN (EC) 325 MG TAB PO SCH (08:28)
[2016-11-06] MEDS: THYROID 30 MG TAB PO SCH (08:28)
[2016-11-06] MEDS: DOCUSATE SODIUM 100 MG CAP PO SCH (08:28)
--- NOTE | 2016-11-06 08:35 | PN ---
Date/Time of Note Date/Time of Note DATE: 11/06/16 TIME: 08:33 Assessment/Plan Lines/Catheters IV Catheter Type (from Nrsg): Saline Lock Calvo in Place (from Nrsg): No Assessment/Plan Assessment/Plan Stable, POD #4, s/p left TKA -pain meds as needed -ASA/SCDs -OOB with PT -dressing changed today -Xeroform applied to adhesive abrasions -d/c home today -follow up in the office in 1 week Subjective 24 Hr Interval Summary No acute overnight events. Knee pain improving. States burning sensation from adhesive abrasion also improving. VSS, afebrile. Stable for discharge home today. Exam/Review of Systems Vital Signs Vitals Vital Signs Date Time Temp Pulse Resp B/P Pulse Ox O2 Delivery O2 Flow Rate FiO2 11/05/16 19:47 98.5 77 18 119/59 95 11/04/16 19:45 Room Air 11/03/16 04:36 3.0 Intake and Output 11/05/16 11/05/16 11/06/16 15:00 23:00 07:00 Intake Total 800 ml 500 ml Balance 800 ml 500 ml Exam Free Text/Dictation Dressing dry Incision clean, dry, and intact without redness or drainage Adhesive abrasion on proximal leg improving. No erythema or significant drainage Thigh soft 5/5 Quadriceps, Tibialis Anterior, EHL, Gastroc, Soleus, Peroneals Normal sensation Palpable DT/PT, CR <2 sec No distal edema Results Result Diagram: 11/06/16 0425 11/06/16 0425 SOHA HAJI PA-C Nov 06, 2016 08:35
[2016-11-06 08:44] VITALS: BP 134/63; RESP 18
[2016-11-06] MEDS: PREGABALIN 50 MG CAP PO SCH (09:11)
--- NOTE | 2016-11-06 12:53 | CONS ---
Date/Time of Note Date/Time of Note DATE: 11/06/16 TIME: 12:46 Assessment/Plan Assessment/Plan Chief Complaint/Hosp Course Impression: 1. 4 days postop a left total knee replacement, she is doing well postoperatively. She does have some ecchymoses over her eyelids where she had tape applied during surgery and over her L knee surgical wound , which are fading . 2. Labs were done this morning and are acceptable. 3. She is doing well and can be discharged to home today . Problems: Consultation Date/Type/Reason Admit Date/Time Nov 02, 2016 at 10:56 Initial Consult Date Type of Consultation: medicine Referring Provider: ELEUTERIO CONNOLLY MD 24 HR Interval Summary Free Text/Dictation She is sitting up in a chair without complaints . Constitutional: improved, no complaints Exam/Review of Systems Vital Signs Vitals Vital Signs Date Time Temp Pulse Resp B/P Pulse Ox O2 Delivery O2 Flow Rate FiO2 11/06/16 08:44 98.3 72 18 134/63 97 11/04/16 19:45 Room Air 11/03/16 04:36 3.0 Intake and Output 11/05/16 11/05/16 11/06/16 15:00 23:00 07:00 Intake Total 800 ml 500 ml Balance 800 ml 500 ml Exam Constitutional: alert, oriented, well developed Respiratory: clear to auscultation, normal air movement Cardiovascular: nl pulses, regular rate and rhythm Musculoskeletal: nl extremities to inspection Results Result Diagram: 11/06/16 0425 11/06/16 0425 Results 24 hrs Laboratory Tests Test 11/06/16 04:25 Hemoglobin 10.8 L Hematocrit 33.8 L Sodium Level 141 Potassium Level 3.9 Chloride Level 104 Carbon Dioxide Level 27 Anion Gap 14 Blood Urea Nitrogen 8 Creatinine 0.83 Glucose Level 101 Calcium Level 8.5 Medications Medications Current Medications Thyroid 30 mg 30 mg DAILY PO Last administered on 11/06/16 08:28; Admin Dose 30 MG; Start 11/03/16 at 09:00 Lactated Ringer's (Lr) 1,000 ml @ 125 mls/hr Q8H IV Last administered on 04:49; Admin Dose 125 MLS/HR; Start 11/02/16 at 18:18 Hydromorphone HCl (Dilaudid) 1 mg Q3H PRN IV PAIN LEVEL 8-10; Start 11/02/16 at 18:30 Ondansetron HCl (Zofran Inj) 4 mg Q6H PRN IV NAUSEA AND/OR VOMITING; Start at 18:30 Bisacodyl (Dulcolax Supp) 10 mg Q12H PRN [place] CONSTIPATION; Start 11/02/16 at 18: 30 Magnesium Hydroxide (Milk Of Mag) 30 ml BID PRN PO CONSTIPATION Last administered on 11/06/16 05:27; Admin Dose 30 ML; Start 11/02/16 at 18:30 Sodium Biphosphate/ Sodium Phosphate (Fleet Enema) 133 ml DAILY PRN [place] CONSTIPATION; Start 11/02/16 at 18:30 Docusate Sodium (Colace) 100 mg BID PO Last administered on 11/06/16 08:28; Admin Dose 100 MG; Start 11/02/16 at 21:00 Diphenhydramine HCl (Benadryl) 25 mg Q6H PRN PO PRURITUS; Start 11/02/16 at 18: 30 Acetaminophen/ Hydrocodone Bitart ([place] (7.5-325)) 1 tab Q4H PRN PO PAIN LEVEL 1-3; Start 11/02/16 at 18:30 Acetaminophen/ Hydrocodone Bitart ([place] (7.5-325)) 2 tab Q4H PRN PO PAIN LEVEL 4-7 Last administered on 11/06/16 08:29; Admin Dose 2 TAB; Start at 18:30 Aspirin (Ecotrin) 325 mg BID PO Last administered on 11/06/16 08:28; Admin Dose 325 MG; Start 11/03/16 at 09:00 Pantoprazole (Protonix Tab) 40 mg BID@06,18 PO Last administered on 11/06/16 05:26; Admin Dose 40 MG; Start 11/03/16 at 06:00 Pregabalin (Lyrica) 50 mg BID PO Last administered on 11/06/16 09:11; Admin Dose 50 MG; Start 11/02/16 at 21:00 TAMMY SANDERS MD Nov 06, 2016 12:53
--- NOTE | 2016-11-06 13:31 | DS ---
Date/Time of Note Date/Time of Note DATE: 11/06/16 TIME: 13:26 Discharge Summary Admission/Discharge Info Admit Date/Time Nov 02, 2016 at 10:56 Discharge Date/Time 11/06/16 Discharge Diagnosis s/p left TKA Patient Condition: Good Procedures left total knee arthroplasty Hospital Course This is a 55 year old female who came into the clinic complaining of left knee pain. She had undergone conservative treatment with no relief and it was thought she would benefit from a left total knee arthroplasty. On 11/02/2016, the patient was admitted and taken to the operating room, where she underwent a left total knee arthroplasty. There were no intraoperative complications. The patient tolerated procedure well. She was taken to recovery room in stable condition. Pain was well controlled oral pain medication. She was started on aspirin and SCDs for DVT prophylaxis. She remained hemodynamically stable and neurovascularly intact throughout her hospital stay. She began physical therapy on postoperative day 1 and continue to make a progress. Ultimately she was deemed stable for discharge home on postoperative day 4. Prior to discharge , the incision was inspected and noted to be clean, dry, and intact. Dressing changes were done prior to patient going home. Additionally she did have Xeroform dressing applied to the adhesive abrasion she sustained from the drapes intraoperatively. DISCHARGE INSTRUCTIONS: The patient be discharged home in stable condition. She is to resume a normal diet. She is weightbearing as tolerated on the left lower extremity. She will begin physical therapy with home health. She will be discharged home with a medication noted in this summary and is to resume all of her normal home medication. The patient is to call the office or go to the emergency room for any concerns including increased redness, swelling, drainage , fever, or any concerns regarding the operation or site of incision. Home Meds Active Scripts Tramadol HCl (Tramadol HCl) 50 Mg Tablet, 50 MG PO Q6 for 30 Days, #60 TAB Prov:SOHA HAJI PA-C 11/03/16 Pregabalin* (Lyrica*) 50 Mg Capsule, 50 MG PO BID for 30 Days, #60 CAP Prov:SOHA HAJI PA-C 11/03/16 Hydrocodone/Acetaminophen (Hydrocodon-Acetaminoph 7.5-325) 1 Each Tablet, 1 TAB PO Q4H Y for PAIN LEVEL 1-3 for 30 Days, #60 TAB Prov:SOHA HAJI PA-C 11/03/16 Aspirin (Aspir-Vani) 325 Mg Tablet., 325 MG PO BID for 40 Days, #80 Prov:SOHA HAJI PA-C 11/03/16 Reported Medications Thyroid* (Radha Thyroid*) 30 Mg Tablet, 30 MG PO DAILY, TAB 11/02/16 Omeprazole* (Omeprazole*) 20 Mg Capsule., 20 MG PO DAILY, #30 CAP 11/02/16 Follow-up Plan Follow-up in the office on 11/13/2016 Primary Care Provider Not On Staff Doctor Pending Labs Laboratory Tests Test 11/06/16 04:25 Hemoglobin 10.8g/dl (12.0-16.0) Hematocrit 33.8% (37.0-47.0) Sodium Level 141mmol/L (135-144) Potassium Level 3.9mmol/L (3.5-5.1) Chloride Level 104mmol/L (97-110) Carbon Dioxide Level 27mmol/L (21-31) Anion Gap 14 (8-16) Blood Urea Nitrogen 8mg/dl (7-20) Creatinine 0.83mg/dl (0.44-1.00) Glucose Level 101mg/dl (70-220) Calcium Level 8.5mg/dl (8.4-10.2) SOHA HAJI PA-C Nov 06, 2016 13:31
== END 2016-11-06 13:42 | disposition home health service (06) | DRG 470 ==
LOC: REC 10:56 → MS1 20:40
PROVIDERS: ADMIT Orthopaedic Surgery; ATTEND Orthopaedic Surgery
PROC: 0SRD0J9 Replacement of Left Knee Joint with Synthetic Substitute, Cemented, Open Approach (ICD-10-PCS; principal; 2016-11-02 13:00)
DX: M17.12 Unilateral primary osteoarthritis, left knee (principal); E85.9 Amyloidosis, unspecified; G62.9 Polyneuropathy, unspecified; E03.9 Hypothyroidism, unspecified; K21.9 Gastro-esophageal reflux disease without esophagitis; I34.1 Nonrheumatic mitral (valve) prolapse
CPT/HCPCS: 73560; 80048; 81001; 81003; 85014; 85018; 87081; 87086; 97110; 97116; 97163; 97166; 97530; 97535; C1776; J0171; J0690; J0697; J0735; J1100; J1885; J2250; J2405; J2765; J3010; J3370; J7120

== ENCOUNTER → 2016-11-13 | Outpatient (CLI) | payer OTHER ==
[~2016-11-13] MED LIST changes: +ASPI325T32 PO; -BUPIVACAINE 0.5% (SDV) 30 ML, EPINEPHrine 0.3 MG, KETOROLAC 30 MG, CLONIDINE 100 MCG, S... IRR SCH; -BUPIVACAINE LIPOSOME/PF 266 MG/20 ML VIAL INFIL SCH; -CEFAZOLIN 2GM/50 ML (PMX) 50 ML X1 BEFORE INCISION IVPB SCH; -CELECOXIB 400 MG PO X1 DOSE PO SCH; -EXPAREL NOTE (BUPIVICAINE LIPOSOMAL) XX SCH; +HYDR-3605 PO; -LACTATED RINGER'S 1,000 ML IV SCH; +OMEP20CA16 PO; -ONDANSETRON 4 MG IV X 1 DOSE IV SCH; +PREG50CA PO; -PREGABALIN 300 MG PO X1 PO SCH; +THYR30TA PO; +TRAM50TA2 PO; -TRANEXAMIC ACID 980 MG in SOD CHLORIDE 0.9% 100 ML IVPB SCH; -TRANEXAMIC ACID 980 MG in SOD CHLORIDE 0.9% 90.2 ML IV SCH; -oxyCODONE (CR) 10 MG TAB [oxyCONTIN] X1 DOSE PO SCH; -traMADOL 50 MG TAB X 1 DOSE PO SCH
--- NOTE | 2016-11-13 11:43 | PN ---
Date/Time of Note Date/Time of Note DATE: 11/13/16 TIME: 11:37 Assessment/Plan VTE Prophylaxis VTE Prophylaxis Intervention: ambulation, other Assessment/Plan Assessment/Plan ASSESSMENT: 10 days status post left total knee arthroplasty PLAN: The nadeem were removed today, and Steri-Strips were applied. She is to continue doing physical therapy with home health. I encouraged her to leave the adhesive abrasions open and allow them to continue to heal. She was given a refill of [place] 7.5/325 quantity #60 today. She does have some moderate soft tissue swelling of left lower externally, therefore we will obtain a Doppler to rule out DVT. In lieu of that being negative, we will see her back in 4 weeks for repeat evaluation. The patient is to call the office in the meantime if she has any concerns. Subjective 24 Hr Interval Summary Free Text/Dictation The patient presents today for her first postoperative visit on her left knee. She is now 10 days status post left total knee arthroplasty. She is doing well overall. The adhesive abrasions are improving overall and healing nicely, although she does complain of some itching and burning around the area. She is also having moderate knee pain that is controlled with Cardinal. She has been elevating her left lower extremity and states the swelling has improved overall. She denies any fevers or chills. She is doing physical therapy with home health. She presents today for her first postoperative evaluation. Exam/Review of Systems Exam On exam today, she is alert and oriented 4, and in no acute distress. Exam of the left knee demonstrates the incision to be clean, dry, and intact. The abrasions proximally over the left leg are improving. There is no weeping or redness noted. There are scabbing and healing nicely. Her range of motion is 0 -110 today. Varus and valgus forces are stable. There is no erythema, warmth , pus, or drainage of the incision noted. Compartments are soft. Homans sign is negative. She is neurovascularly intact distally. IMAGING: X-rays of the left knee were obtained today and reviewed by me. They demonstrate the prosthesis to be in a good anatomic location with no fractures or dislocations identified. SOHA HAJI PA-C Nov 13, 2016 11:43
--- NOTE | 2016-11-13 14:56 | RADRPT ---
PROCEDURE: CR Left Knee CLINICAL INDICATION: Pain TECHNIQUE: Weightbearing AP and lateral views were submitted COMPARISON: 11/02/2016 FINDINGS: Osseous Structures: The total left knee replacement components again appear well seated. The osseou s elements appear intact. Joint Spaces: The joint spaces are adequately maintained. There is a large joint effusion which has increased from the previous. Soft Tissues: The surgical drain and nadeem have been removed. IMPRESSION: 1. A well seated total left knee replacement is again evident. 2. The osseous elements remain intact. 3. Large increasing joint effusion. 4. Interval removal of the drain and nadeem. Subcutaneous air is no longer evident. Physician Gene Date Time Electronically viewed and signed by Physician Gene on 11/13/2016 14:56 /
== END | disposition home or self-care (01) ==
LOC: HKI 09:14
PROVIDERS: ATTEND Orthopaedic Surgery
DX: Z47.1 Aftercare following joint replacement surgery (principal); Z48.02 Encounter for removal of sutures; Z96.652 Presence of left artificial knee joint